=== PATIENT | female | born 1980 | race Two or more races ===

== ENCOUNTER 2020-02-06 17:27 | Inpatient (IN) | payer MEDICAID ==
[~2020-02-06] VITALS: Ht 170.2 cm; Wt 122.7 kg
[2020-02-06] MEDS ORDERED: pantoprazole 40 MG vial IV ONE (17:50)
[2020-02-06 18:31] LABS: BASOPHILS % (AUTO) 0.5 % (0-1); EOSINOPHILS # (AUTO) 0.2 X10'3 (0-0.9); EOSINOPHILS % (AUTO) 2.6 % (0-6); HEMATOCRIT 32.4 % (35.0-45.0); HEMOGLOBIN 10.2 g/dl (12.0-16.0); LYMPHOCYTES # (AUTO) 0.7 X10'3 (1.1-4.8); LYMPHOCYTES % (AUTO) 8.7 % (21-51); MEAN CORPUSCULAR HEMOGLOBIN 23.6 PG (27.0-31.0); MEAN CORPUSCULAR HGB CONC 31.6 g/dL (33.0-36.5); MEAN CORPUSCULAR VOLUME 74.6 FL (78-98); MEAN PLATELET VOLUME 7.8 FL (7.4-10.4); MONOCYTES # (AUTO) 0.6 X10'3 (0-0.9); MONOCYTES % (AUTO) 8.1 % (2-12); NEUTROPHILS # (AUTO) 6.2 X10'3 (1.8-7.7); NEUTROPHILS % (AUTO) 80.1 % (42-75); PLATELET COUNT 209 X10'3 (140-440); RED BLOOD COUNT 4.34 X10'6 (4.20-5.60); RED CELL DISTRIBUTION WIDTH 17.8 % (11.5-14.5); WHITE BLOOD COUNT 7.8 X10'3 (4.5-11.0)
[2020-02-06 18:52] LABS: ALANINE AMINOTRANSFERASE 296 U/L (12-78); ALBUMIN 3.1 G/DL (3.4-5.0); ALBUMIN/GLOBULIN RATIO 0.7 (1.1-1.5); ALKALINE PHOSPHATASE 210 IU/L (46-116); ANION GAP 7 (8-16); ASPARTATE AMINO TRANSFERASE 76 U/L (10-37); BILIRUBIN,TOTAL 3.4 MG/DL (0.1-1.0); BLOOD UREA NITROGEN 6 MG/DL (7-18); BUN/CREATININE RATIO 9.4 (6.6-38.0); CALCIUM 8.3 MG/DL (8.5-10.1); CHLORIDE 103 MMOL/L (99-107); CREATININE 0.64 MG/DL (0.40-0.90); GLUCOSE 94 MG/DL (70-104); LIPASE 83 U/L (73-393); POTASSIUM 3.4 MMOL/L (3.5-5.1); SODIUM 137 MMOL/L (135-145); TOTAL CARBON DIOXIDE 26.6 MMOL/L (24-32); TOTAL PROTEIN 7.5 G/DL (6.4-8.2); eGFR > 90 ML/MIN
[2020-02-06] MEDS ORDERED: morphine 4 MG/ML inj SYRINge IV ONE (19:15)
--- NOTE | 2020-02-06 19:37 | NUR ---
patient is allergic to morphine. morphine wasted with ezra hernandez. looked at previous hospital's records and patient had dilaudid 1mg iv as well as zofran 8 mg iv: order received from dr jackson
[2020-02-06] MEDS ORDERED: ondansetron/PF 4mg/2ml inj IV ONE (19:40)
[2020-02-06] MEDS ORDERED: HYDROmorphone 1 mg/ml syringe IV ONE (19:40)
[2020-02-06] MEDS ORDERED: potassium Cl 40MEQ/1/2NS 520ml 520 ML IV PRN ×2 (20:50)
[2020-02-06] MEDS ORDERED: naloxone 0.4 mg/ml inj IV PRN (20:55)
[2020-02-06] MEDS ORDERED: CADD PCA waste documentation MC PRN (20:55)
[2020-02-06] MEDS: CefTRIAXone/D5W-Rocephin 1gm 50 ML IV SCH (21:37)
[2020-02-06] MEDS: normal saline 1000ml 1,000 ML IV SCH (21:37)
--- NOTE | 2020-02-06 22:17 | NUR ---
Pt stated that the first confirmed positive COVID-19 recieved was this past 02/04/20. Pt stated that this past Aug she was in household contact with positive COVIDs. Her and child required hospitilization but she was instructed to quaratine at home with the other of her 3 children, but was never confirmed to be positive.
[2020-02-06 22:24] LABS: URINE HCG NEGATIVE (NEG)
[2020-02-07] VITALS (15 sets, daily range): BP systolic 147–194; BP diastolic 81–118
[2020-02-07] MEDS ORDERED: HYDROmorphone inj. 0.5 MG/0.5 ML DISP.SYRIN IV ONE (02:00)
[2020-02-07] MEDS: HYDROmorphone/NS 1 mg/ml CADD 50 ML IV SCH ×11 (02:39→23:30)
[2020-02-07 05:51] LABS: BASOPHILS # (AUTO) 0.1 X10'3 (0-0.2); BASOPHILS % (AUTO) 0.9 % (0-1); EOSINOPHILS # (AUTO) 0.1 X10'3 (0-0.9); EOSINOPHILS % (AUTO) 1.6 % (0-6); HEMATOCRIT 29.6 % (35.0-45.0); HEMOGLOBIN 9.4 g/dl (12.0-16.0); LYMPHOCYTES # (AUTO) 0.8 X10'3 (1.1-4.8); LYMPHOCYTES % (AUTO) 13.3 % (21-51); MEAN CORPUSCULAR HEMOGLOBIN 23.8 PG (27.0-31.0); MEAN CORPUSCULAR HGB CONC 31.9 g/dL (33.0-36.5); MEAN CORPUSCULAR VOLUME 74.7 FL (78-98); MEAN PLATELET VOLUME 7.5 FL (7.4-10.4); MONOCYTES # (AUTO) 0.7 X10'3 (0-0.9); MONOCYTES % (AUTO) 10.5 % (2-12); NEUTROPHILS # (AUTO) 4.6 X10'3 (1.8-7.7); NEUTROPHILS % (AUTO) 73.7 % (42-75); PLATELET COUNT 207 X10'3 (140-440); RED BLOOD COUNT 3.96 X10'6 (4.20-5.60); RED CELL DISTRIBUTION WIDTH 17.6 % (11.5-14.5); WHITE BLOOD COUNT 6.2 X10'3 (4.5-11.0)
[2020-02-07 06:13] LABS: ALANINE AMINOTRANSFERASE 228 U/L (12-78); ALBUMIN 2.7 G/DL (3.4-5.0); ALBUMIN/GLOBULIN RATIO 0.6 (1.1-1.5); ALKALINE PHOSPHATASE 190 IU/L (46-116); ANION GAP 9 (8-16); ASPARTATE AMINO TRANSFERASE 58 U/L (10-37); BILIRUBIN,TOTAL 3.2 MG/DL (0.1-1.0); BLOOD UREA NITROGEN 7 MG/DL (7-18); CALCIUM 8.2 MG/DL (8.5-10.1); CHLORIDE 104 MMOL/L (99-107); CREATININE 0.54 MG/DL (0.40-0.90); GLUCOSE 98 MG/DL (70-104); POTASSIUM 3.1 MMOL/L (3.5-5.1); SODIUM 140 MMOL/L (135-145); TOTAL CARBON DIOXIDE 27.1 MMOL/L (24-32); TOTAL PROTEIN 6.9 G/DL (6.4-8.2); eGFR > 90 ML/MIN
[2020-02-07] MEDS ORDERED: SUCR1TAB PO (07:32)
[2020-02-07] MEDS ORDERED: PANT40TA54 PO (07:32)
[2020-02-07 07:53] LABS: ANISOCYTOSIS 1+; MICROCYTOSIS 1+; PLATELET ESTIMATE NORMAL
[2020-02-07 07:54] LABS: ELLIPTOCYTES FEW; HYPOCHROMASIA 1+
[2020-02-07] MEDS: sucralfate 1 gm tablet PO SCH ×4 (08:00→21:21)
[2020-02-07] MEDS ORDERED: pantoprazole 40mg Tablet.DR PO SCH (08:00)
[2020-02-07] MEDS: pantoprazole 40 MG vial IV SCH (08:00)
[2020-02-07] MEDS: normal saline 1000ml 1,000 ML IV SCH ×2 (08:00→16:50)
[2020-02-07] MEDS: K and/or MAG REPLACEMENT MC SCH ×3 (08:00→19:44)
[2020-02-07] MEDS ORDERED: potassium Cl 20 mEq SR tablet PO PRN ×2 (11:55)
[2020-02-07] MEDS ORDERED: potassium Cl 40MEQ/1/2NS 520ml 520 ML IV PRN (11:55)
[2020-02-07] MEDS ORDERED: magnesium Cl slow-release 64mg tablet PO PRN (11:55)
[2020-02-07] MEDS ORDERED: magnesium 2GM in 50ml NS 50 ML IV PRN (11:55)
[2020-02-07] MEDS ORDERED: magnesium 4gm in 100ml NS 100 ML IV PRN (11:55)
[2020-02-07] MEDS ORDERED: fentaNYL/PF 50MCG/1 ML 2ML syringe ONE (12:10)
[2020-02-07] MEDS ORDERED: diphenhydrAMINE 50 mg/ml inj ONE (12:10)
[2020-02-07] MEDS ORDERED: MIDAZolam 5mg/5ml vial ONE (12:10)
[2020-02-07] MEDS ORDERED: glucagon, human recombinant 1mg kit ONE (12:11)
[2020-02-07] MEDS ORDERED: LIDOcaine Viscous 15ml cup ONE (12:11)
[2020-02-07] MEDS ORDERED: iohexol 300 MG/1 ML 50ml polymer ONE (12:11)
--- NOTE | 2020-02-07 13:43 | NUR ---
call from Dr. Deepika Anaya, GI specialist in [place], inquiring about patient condition. I advised him that the pt went for the ERCP and has not returned yet.
[2020-02-07] MEDS: ondansetron/PF 4mg/2ml inj IV PRN (15:19)
--- NOTE | 2020-02-07 16:49 | NUR ---
PAGER ID: [phone] MESSAGE: Kristin [phone] erasmo BuckYadira- pt wants to know if she needs an anticoagulant or not? Received subQ anticoag in [place]
--- NOTE | 2020-02-07 18:48 | NUR ---
Patient in room [facility] 4014. I have received report from Kristin PATEL and had the opportunity to ask questions and assume patient care.
[2020-02-07] MEDS: CefTRIAXone/D5W-Rocephin 1gm 50 ML IV SCH (19:43)
[2020-02-07] MEDS ORDERED: enoxaparin 40mg/0.4ml syringe SUBCUT SCH (20:00)
[2020-02-08] MEDS: HYDROmorphone/NS 1 mg/ml CADD 50 ML IV SCH ×6 (01:00→10:40)
[2020-02-08] MEDS: normal saline 1000ml 1,000 ML IV SCH (01:36)
[2020-02-08] MEDS ORDERED: diphenhydrAMINE 25mg capsule PO PRN (02:20)
[2020-02-08 06:00] VITALS: BP 166/99
--- NOTE | 2020-02-08 06:19 | NUR ---
Problems reprioritized. Patient report given, questions answered & plan of care reviewed with Vannessa PATEL.
[2020-02-08] MEDS: K and/or MAG REPLACEMENT MC SCH (08:00)
[2020-02-08] MEDS: sucralfate 1 gm tablet PO SCH (08:48)
[2020-02-08] MEDS: pantoprazole 40 MG vial IV SCH (08:48)
[2020-02-08 10:04] LABS: BASOPHILS % (AUTO) 0.7 % (0-1); EOSINOPHILS # (AUTO) 0.2 X10'3 (0-0.9); EOSINOPHILS % (AUTO) 3.4 % (0-6); HEMATOCRIT 30.4 % (35.0-45.0); HEMOGLOBIN 9.5 g/dl (12.0-16.0); LYMPHOCYTES # (AUTO) 0.9 X10'3 (1.1-4.8); LYMPHOCYTES % (AUTO) 15.9 % (21-51); MEAN CORPUSCULAR HEMOGLOBIN 23.2 PG (27.0-31.0); MEAN CORPUSCULAR HGB CONC 31.1 g/dL (33.0-36.5); MEAN CORPUSCULAR VOLUME 74.5 FL (78-98); MEAN PLATELET VOLUME 7.4 FL (7.4-10.4); MONOCYTES # (AUTO) 0.7 X10'3 (0-0.9); MONOCYTES % (AUTO) 12.4 % (2-12); NEUTROPHILS % (AUTO) 67.6 % (42-75); PLATELET COUNT 233 X10'3 (140-440); RED BLOOD COUNT 4.08 X10'6 (4.20-5.60); RED CELL DISTRIBUTION WIDTH 17.6 % (11.5-14.5)
[2020-02-08 10:17] LABS: ALANINE AMINOTRANSFERASE 192 U/L (12-78); ALBUMIN 2.9 G/DL (3.4-5.0); ALBUMIN/GLOBULIN RATIO 0.7 (1.1-1.5); ALKALINE PHOSPHATASE 190 IU/L (46-116); ANION GAP 7 (8-16); ASPARTATE AMINO TRANSFERASE 77 U/L (10-37); BILIRUBIN,TOTAL 2.9 MG/DL (0.1-1.0); BLOOD UREA NITROGEN 4 MG/DL (7-18); BUN/CREATININE RATIO 6.3 (6.6-38.0); CALCIUM 8.7 MG/DL (8.5-10.1); CHLORIDE 105 MMOL/L (99-107); CREATININE 0.63 MG/DL (0.40-0.90); GLUCOSE 133 MG/DL (70-104); LIPASE 251 U/L (73-393); POTASSIUM 3.3 MMOL/L (3.5-5.1); SODIUM 138 MMOL/L (135-145); TOTAL CARBON DIOXIDE 26.4 MMOL/L (24-32); TOTAL PROTEIN 7.3 G/DL (6.4-8.2); eGFR > 90 ML/MIN
[2020-02-08] MEDS: ondansetron/PF 4mg/2ml inj IV PRN (10:35)
[2020-02-08] MEDS ORDERED: HYDR-4383 PO ×2 (10:47→10:52)
--- NOTE | 2020-02-08 13:50 | NUR ---
47.2 ml wasted, patient discharged, Perri PATEL witnessed. 47.2 ml wasted 09/29 attempts 1.6 given Addendum: 02/08/20 at 1401 by Vannessa Martinez RN Printed, cosigned and faxed to pharmacy.
== END 2020-02-08 12:00 | disposition home or self-care (01) ==
LOC: ER 17:28 → ED HOLD 20:50 → ORTHO 4S 02-07 07:20
PROVIDERS: ADMIT Internal Medicine; ATTEND Family Medicine
PROC: 0FC98ZZ Extirpation of Matter from Common Bile Duct, Via Natural or Artificial Opening Endoscopic (ICD-10-PCS; principal; 2020-02-07)
PROC: BF101ZZ Fluoroscopy of Bile Ducts using Low Osmolar Contrast (ICD-10-PCS; 2020-02-07)
DX: K83.1 Obstruction of bile duct (principal); E11.9 Type 2 diabetes mellitus without complications; Z87.11 Personal history of peptic ulcer disease; Z87.891 Personal history of nicotine dependence; Z90.49 Acquired absence of other specified parts of digestive tract; U07.1 COVID-19
CPT/HCPCS: 36415; 43262; 43264; 80053; 81025; 83690; 85008; 85025; 85610; 87081; 99285; A4620; C1769; C9113; G0378; J0696; J1170; J1200; J1610; J1650; J2250; J2405; J3010; J3480; J7030; J7040; Q0163; Q9967